=== PATIENT | female | born 1935 | race Caucasian/White ===

== ENCOUNTER 2019-02-16 05:13 | Inpatient (IN) ==
[2019-02-16] MEDS ORDERED: methylPREDNISolone 125 MG/2 ML VIAL IVP ONE (05:20)
[2019-02-16] MEDS ORDERED: Ipratropium/Albuterol Neb 3 ML IH ONE ×2 (05:45→07:36)
[2019-02-16] MEDS ORDERED: Calcium Gluconate 1gm/50mL 1 GM/50 ML BAG IVPB ONE (05:47)
[2019-02-16] MEDS ORDERED: 0.9 % Sodium Chloride 1,000 ML IVC ONE ×2 (05:47→06:25)
[2019-02-16 06:00] LABS: Basophils # 0.1 K/mcL (0.0-0.2); Basophils % 0.5 %; Eosinophils % 0.1 %; Hematocrit 40.8 % (35.3-44.9); Hemoglobin 13.3 g/dL (11.5-15.4); Immature Granulocytes % 1.7 % (0-4); Lymphocytes # 1.4 K/mcL (0.6-4.6); Lymphocytes % 10.4 %; Mean Corpuscular HGB Conc 32.6 g/dL (31.6-35.5); Mean Corpuscular Volume 89.1 fL (83.0-100.0); Mean Platelet Volume 11.1 fL (9.4-12.4); Monocytes # 1.3 K/mcL (0.0-1.3); Neutrophils # 10.2 K/mcL (1.6-8.9); Platelet Count 194 K/mcL (140-400); Red Blood Count 4.58 M/mcL (3.82-4.97); Red Cell Distribution Width 17.2 % (11.5-14.5); Segmented Neutrophils % 77.3 %; White Blood Count 13.2 K/mcL (4.3-11.1)
[2019-02-16 06:05] LABS: INR 2.5; Prothrombin Time 28.1 Seconds (9.4-12.1)
[2019-02-16 06:05] LABS: ABG Base Excess 8 mEq/L (-2 to 3); ABG HCO3 37 mEq/L (21-27); ABG Oxygen Saturation 95 % (95-98); ABG PCO2 73 mmHg (35-45); ABG PH 7.31 pH Units (7.32-7.45); ABG PO2 88 mmHg (85-104); ABG TCO2 39 mEq/L (20-26)
[2019-02-16 06:08] LABS: Activated Partial Thrombo Time 37.1 Seconds (26.0-36.0)
[2019-02-16] MEDS ORDERED: Piperacillin/Tazobactam 3.375 GM in 0.9 % Sodium Chloride Mini Bag 100 ML IVPB ONE (06:17)
[2019-02-16] MEDS ORDERED: Isovue-370 500 ML BOTTLE IVP ONE (06:20)
[2019-02-16 06:21] LABS: Calcium 6.9 mg/dL (8.6-10.3); Potassium 4.9 mEq/L (3.5-5.1)
[2019-02-16 06:23] LABS: Troponin I 0.04 ng/mL (< 0.04)
[2019-02-16 06:24] LABS: Platelet Estimate Normal (Normal)
[2019-02-16] MEDS ORDERED: *HR* LORazepam 2 MG/ML VIAL IVP ONE (08:19)
[2019-02-16] MEDS ORDERED: Amiodarone Premix 150 MG/100 ML BAG IVPB ONE (08:50)
[2019-02-16] MEDS ORDERED: Amiodarone Premix 360 MG/200 ML BAG IVC ONE (08:50)
[2019-02-16] MEDS ORDERED: Naloxone 0.4 MG/ML INJ IVP PRN (09:23)
[2019-02-16] MEDS ORDERED: Ondansetron 4 MG/2 ML VIAL IVP PRN (09:23)
[2019-02-16] MEDS ORDERED: 0.9 % Sodium Chloride 1,000 ML IVC SCH (09:30)
[2019-02-16 09:45] LABS: Troponin I 0.04 ng/mL (< 0.04)
[2019-02-16 10:58] LABS: Magnesium 1.6 mg/dL (1.6-2.6)
[2019-02-16] MEDS ORDERED: Atropine Sulfate 1% 40 DROP/2 ML BOTTLE SL PRN (11:23)
[2019-02-16] MEDS: Ipratropium/Albuterol Neb 3 ML IH SCH ×4 (11:58→23:57)
[2019-02-16] MEDS ORDERED: methylPREDNISolone 125 MG/2 ML VIAL IM SCH (12:00)
[2019-02-16] MEDS ORDERED: Amiodarone Premix 360 MG/200 ML BAG IVC SCH (14:00)
[2019-02-16] MEDS: methylPREDNISolone 125 MG/2 ML VIAL IVP SCH (18:10)
[2019-02-16] MEDS: *HR* LORazepam 2 MG/ML VIAL IVP PRN ×2 (18:18→21:19)
[2019-02-16 19:26] VITALS: BP 90/60
[2019-02-16] MEDS: *HR* FentaNYL (PF) 100 MCG/2 ML VIAL IVP PRN (22:46)
[2019-02-17] MEDS: methylPREDNISolone 125 MG/2 ML VIAL IVP SCH ×3 (00:23→11:56)
[2019-02-17] MEDS: *HR* FentaNYL (PF) 100 MCG/2 ML VIAL IVP PRN (01:22)
[2019-02-17] MEDS: Ipratropium/Albuterol Neb 3 ML IH SCH ×3 (04:16→10:32)
== END 2019-02-17 10:10 | disposition expired | DRG 871 ==
LOC: EMEROOARM 05:13 → SUATTDRO 10:39 → ICNU 10:39 → 2ANU 11:10
PROVIDERS: ADMIT Pediatrics; ATTEND Internal Medicine